=== PATIENT | male | born 1940 | race Caucasian/White ===

== ENCOUNTER 2016-08-19 16:40 | Inpatient (IN) | payer OTHER ==
[2016-08-19 16:55] LABS: ADD DIFF? YES; ADD MORPH? NO; ATYPICAL LYMPHOCYTE FLAG 0 (0-99); FRAGMENT RBC FLAG 0 (0-99); LEFT SHIFT FLG 40 (0-99); LIPEMIA HEMOLYSIS FLAG 80 (0-99); MEAN CELL VOLUME 91.9 fL (81.5-99.8); NRBC-AUTO% 0.1 % (0.0-0.2); PLATELET CLUMPS FLAG 0 (0-99); PLATELET COUNT 249 10^3/uL (150-400); RED CELL DISTRIBUTION WIDTH 13.2 % (11.5-15.2)
[2016-08-19 17:06] LABS: ABSOLUTE NRBC COUNT 0.04 10^3/uL (0-0.01); HEMATOCRIT 41.1 % (40.0-51.0); HEMOGLOBIN 13.7 g/dL (13.7-17.5); MEAN CELL HEMOGLOBIN 30.6 pg (27.9-34.1); MEAN CELL HEMOGLOBIN CONCENTR. 33.3 g/dL (32.4-36.7); MEAN PLATELET VOLUME 10.2 fL (8.7-11.7); RED BLOOD CELL COUNT 4.47 10^6/uL (4.40-6.38)
[2016-08-19 17:07] LABS: ANION GAP 14 mEq/L (8-16); CALCIUM 8.6 mg/dL (8.5-10.4); CARBON DIOXIDE 17 mEq/l (22-31); CHLORIDE 104 mEq/L (97-110); CREATININE 1.6 mg/dL (0.7-1.3); ETHANOL SERUM < 10 mg/dL (0-10); GLOMERULAR FILTRATION RATE 46; GLUCOSE 273 mg/dL (70-100); POTASSIUM 3.3 mEq/L (3.5-5.2); SODIUM 135 mEq/L (134-144)
[2016-08-19 17:08] LABS: % IMMATURE GRANULYOCYTES 3.9 % (0.0-1.1); ABSOLUTE IMMATURE GRANULOCYTES 1.19 10^3/uL (0.00-0.10); ADD SCAN? NO
[2016-08-19 17:10] LABS: INR 1.29 (0.83-1.16); PROTIME(PATIENT) 16.1 SEC (12.0-15.0)
[2016-08-19 17:11] LABS: APTT 34.6 SEC (23.0-38.0)
[2016-08-19] MEDS ORDERED: TRANEXAMIC ACID 1,000 MG/10 ML VIAL ONE (17:18)
[2016-08-19] MEDS ORDERED: NS 100 ML BAG IV ONE ×2 (17:18→17:21)
[2016-08-19] MEDS ORDERED: TRANEXAMIC ACID 1,000 MG in NS 500 ML IV ONE (17:19)
[2016-08-19] MEDS ORDERED: TRANEXAMIC ACID 1,000 MG in NS 100 ML IV ONE (17:19)
[2016-08-19] MEDS ORDERED: CEFAZOLIN 2 GM/DEXTROSE/100 ML BAG IV ONE (17:20)
[2016-08-19 17:29] LABS: BASE EXCESS -21.2 mEq/L (-2.5-2.5); BICARBONATE 9 mEq/L (22-26); MEASURED OXYGEN SATURATION 98 % (92-95); PCO2 43 mmHg (34-38); PO2 167 mmHg (65-75); TCO2 10 mEq/L (23-27)
[2016-08-19 17:30] LABS: ASSIST CONTROL YES; O2 CONCENTRATIION 100 % (0-100); P/F RATIO 167 RATIO
[2016-08-19 17:31] LABS: END TIDAL CO2 28; TOTAL RATE 16
[2016-08-19 17:51] LABS: PLATELET ESTIMATE ADEQUATE (ADEQ)
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
[2016-08-19 18:15] LABS: ADD DIFF? YES; ADD MORPH? NO; FRAGMENT RBC FLAG 0 (0-99); LIPEMIA HEMOLYSIS FLAG 80 (0-99); NRBC-AUTO% 0.3 % (0.0-0.2); PLATELET CLUMPS FLAG 10 (0-99); PLATELET COUNT 129 10^3/uL (150-400); RED BLOOD CELL COUNT 2.88 10^6/uL (4.40-6.38)
[2016-08-19 18:20] LABS: ABSOLUTE NRBC COUNT 0.04 10^3/uL (0-0.01); ATYPICAL LYMPHOCYTE FLAG 10 (0-99); HEMATOCRIT 26.5 % (40.0-51.0); HEMOGLOBIN 8.6 g/dL (13.7-17.5); MEAN CELL HEMOGLOBIN 29.9 pg (27.9-34.1); MEAN CELL HEMOGLOBIN CONCENTR. 32.5 g/dL (32.4-36.7); MEAN PLATELET VOLUME 10.1 fL (8.7-11.7); RED CELL DISTRIBUTION WIDTH 15.4 % (11.5-15.2)
[2016-08-19 18:30] LABS: INR 2.47 (0.83-1.16)
--- NOTE | 2016-08-19 18:31 | CPEKG ---
Heart Rate: 116 RR Interval: 517 QRSD Interval: 124 QT Interval: 364 QTC Interval: 506 QRS [place]: -96 T Wave [place]: 72 EKG Severity - ABNORMAL ECG - EKG Impression: ATRIAL FLUTTER, A-RATE 278 EKG Impression: RIGHT BUNDLE BRANCH BLOCK Electronically Signed By: Jadyn Mason 19-Aug-2016 21:29:03
[2016-08-19] MEDS ORDERED: HEPARIN 10,000 UNIT/10 ML MDV ONE (18:38)
[2016-08-19 18:46] LABS: % IMMATURE GRANULYOCYTES 7.9 % (0.0-1.1)
[2016-08-19 18:47] LABS: ABSOLUTE IMMATURE GRANULOCYTES 1.25 10^3/uL (0.00-0.10); ADD SCAN? NO; LEFT SHIFT FLG 120 (0-99)
[2016-08-19 18:49] LABS: APTT 156.7 SEC (23.0-38.0)
[2016-08-19 18:53] LABS: BASE EXCESS -15.5 mEq/L (-2.5-2.5); BICARBONATE 11 mEq/L (22-26); MEASURED OXYGEN SATURATION 99 % (92-95); PCO2 32 mmHg (34-38); PO2 130 mmHg (65-75); TCO2 12 mEq/L (23-27)
[2016-08-19] MEDS ORDERED: NA BICARBONATE 50 MEQ/50 ML VIAL ONE ×2 (19:01→22:05)
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
[2016-08-19 19:09] LABS: ABSOLUTE NRBC COUNT 0.04 10^3/uL (0-0.01); ADD DIFF? YES; ADD MORPH? NO; ATYPICAL LYMPHOCYTE FLAG 10 (0-99); FRAGMENT RBC FLAG 0 (0-99); HEMATOCRIT 25.2 % (40.0-51.0); LIPEMIA HEMOLYSIS FLAG 80 (0-99); MEAN CELL HEMOGLOBIN 28.8 pg (27.9-34.1); MEAN CELL HEMOGLOBIN CONCENTR. 31.7 g/dL (32.4-36.7); MEAN CELL VOLUME 90.6 fL (81.5-99.8); MEAN PLATELET VOLUME 9.6 fL (8.7-11.7); NRBC-AUTO% 0.3 % (0.0-0.2); PLATELET CLUMPS FLAG 0 (0-99); PLATELET COUNT 141 10^3/uL (150-400); RED BLOOD CELL COUNT 2.78 10^6/uL (4.40-6.38); RED CELL DISTRIBUTION WIDTH 15.4 % (11.5-15.2)
[2016-08-19] MEDS ORDERED: NOREPINEPHRINE/NS 4 MG/500 ML BAG IV ONE ×2 (19:14→21:54)
[2016-08-19 19:15] LABS: LEFT SHIFT FLG 120 (0-99)
[2016-08-19] MEDS: NOREPINEPHRINE/NS 500 ML IV SCH ×2 (19:15→22:00)
[2016-08-19 19:16] LABS: ADD SCAN? NO
[2016-08-19 19:18] LABS: INR 2.83 (0.83-1.16); PROTIME(PATIENT) 30.1 SEC (12.0-15.0)
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
[2016-08-19 20:01] LABS: ECHINOCYTES 2+; MICROCYTES 1+; PLATELET ESTIMATE DECREASED (ADEQ)
--- NOTE | 2016-08-19 20:05 | ECHO ---
[id number] + + [address] : : [facility] [address] : : [phone] + + Adult Echocardiographic Report + + :Name: MADHU AL 1859Study Date: 08/19/2016 06:47 PM : : Hospital Admission Number: [id number] Lo cation: ED 2: :: 1940 Gender: Male : :Age: 75 yrs Race: WH : :Reason For Study: Full Trauma : :History: No previous : + + Left Ventricle The left ventricle is hyperdynamic. Regional wall motion abnormalities cannot be excluded due to limited visualization. Pericardium/Pleural There is no pericardial effusion. Conclusion This is a very limited study. Poor acoustical windows due to trauma. The study was technically difficult. The left ventricle is hyperdynamic. Regional wall motion abnormalities cannot be excluded due to limited visualization. There is no pericardial effusion. Final Reading Physician: Parish Salvador signed on 08/19/2016 08:04 PM Ordering Physician: YORDY KEARNS Performed By: Bernarda Valiente
[2016-08-19] MEDS ORDERED: fentaNYL 100 MCG/2 ML INJ ONE (20:07)
[2016-08-19 20:22] LABS: ECHINOCYTES 2+; MICROCYTES 2+; PLATELET ESTIMATE ADEQUATE (ADEQ)
[2016-08-19] MEDS ORDERED: FUROSEMIDE 20 MG/2 ML VIAL IVP ONE (20:30)
[2016-08-19] MEDS ORDERED: PHYTONADIONE 5 MG in NS 50 ML IV ONE (20:30)
[2016-08-19] MEDS: PHENYLEPHRINE HCL 50 MG in NS 250 ML IV SCH (20:30)
--- NOTE | 2016-08-19 20:30 | POSTOPPROG ---
Post Op Note Date of Operation: 08/19/16 Surgeon: Scotty Villalpando Anesthesia: Local (Specify) Pre-op Diagnosis: Multitrauma, hypotension Post-op Diagnosis: Same Indication: Active pelvic hemorrhage, hypotension Procedure: Catheter arteriography and embolization, left hemipelvis Findings: Successful Embolization of bleeding left obturator artery. Inf/Abcess present in the surg proc area at time of surgery?: No EBL: 50-100 Complications: 0
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
[2016-08-19 20:51] LABS: TEG CONTAINER Citrated Kaolin
[2016-08-19 20:53] LABS: R TIME 7.2 minutes (5-10)
[2016-08-19 20:54] LABS: ALPHA ANGLE 46.7 degrees (53-72); K TIME 3.9 minutes (1-3)
[2016-08-19] MEDS ORDERED: DOPamine/DEXTROSE/250 ML BAG IV ONE (21:07)
[2016-08-19] MEDS ORDERED: SODIUM BICARBONATE 50 MEQ/50 ML SYR ONE (21:07)
[2016-08-19 21:15] LABS: MAXIMUM AMPLITUDE 48.7 mm (50-70)
[2016-08-19] MEDS ORDERED: IOPAMIDOL (ISOVUE-300) 100 ML BTL ONE (21:15)
[2016-08-19 22:01] LABS: BASE EXCESS -20.9 mEq/L (-2.5-2.5); BICARBONATE 9 mEq/L (22-26); IONIZED CALCIUM 0.79 MMOL/L (1.12-1.30); MEASURED OXYGEN SATURATION 93 % (92-95); PCO2 36 mmHg (34-38); PO2 84 mmHg (65-75); TCO2 10 mEq/L (23-27)
[2016-08-19 22:02] LABS: O2 CONCENTRATIION 100 % (0-100); P/F RATIO 84 RATIO
[2016-08-19] MEDS ORDERED: CALCIUM CHLORIDE 1 GM/10 ML INJ IVP ONE (22:45)
[2016-08-19] MEDS ORDERED: SODIUM BICARBONATE 50 MEQ/50 ML SYR IVP ONE ×2 (22:45→23:45)
[2016-08-19] MEDS: VASOPRESSIN/DEXTROSE 250 ML IV SCH (23:30)
[2016-08-20] MEDS ORDERED: ALBUMIN 5% 250 ML BOTTLE IV ONE ×2 (00:04→14:28)
[2016-08-20] MEDS ORDERED: SODIUM BICARBONATE 50 MEQ/50 ML SYR IVP ONE ×3 (00:15→04:00)
[2016-08-20 00:57] LABS: ABSOLUTE NRBC COUNT 0.07 10^3/uL (0-0.01); ADD DIFF? YES; ADD MORPH? NO; ATYPICAL LYMPHOCYTE FLAG 0 (0-99); BICARBONATE 11 mEq/L (22-26); FRAGMENT RBC FLAG 0 (0-99); HEMATOCRIT 31.1 % (40.0-51.0); HEMOGLOBIN 10.1 g/dL (13.7-17.5); LIPEMIA HEMOLYSIS FLAG 80 (0-99); MEAN CELL HEMOGLOBIN 30.4 pg (27.9-34.1); MEAN CELL HEMOGLOBIN CONCENTR. 32.5 g/dL (32.4-36.7); MEAN CELL VOLUME 93.7 fL (81.5-99.8); MEAN PLATELET VOLUME 9.8 fL (8.7-11.7); NRBC-AUTO% 0.8 % (0.0-0.2); PCO2 59 mmHg (34-38); PLATELET CLUMPS FLAG 0 (0-99); PLATELET COUNT 78 10^3/uL (150-400); RED BLOOD CELL COUNT 3.32 10^6/uL (4.40-6.38); RED CELL DISTRIBUTION WIDTH 15.5 % (11.5-15.2); TCO2 13 mEq/L (23-27)
[2016-08-20] MEDS ORDERED: NOREPINEPHRINE/NS 4 MG/500 ML BAG IV ONE ×2 (00:59→05:01)
[2016-08-20] MEDS ORDERED: DOPamine/DEXTROSE/250 ML BAG IV ONE (01:02)
[2016-08-20 01:07] LABS: BASE EXCESS -21.7 mEq/L (-2.5-2.5); MEASURED OXYGEN SATURATION 80 % (92-95); PO2 57 mmHg (65-75)
[2016-08-20 01:10] LABS: INR 4.62 (0.83-1.16); PROTIME(PATIENT) 44.6 SEC (12.0-15.0)
[2016-08-20 01:12] LABS: ADD SCAN? NO; LEFT SHIFT FLG 300 (0-99)
[2016-08-20] MEDS ORDERED: NALOXONE HCL 0.4 MG/ML INJ IVP PRN (01:24)
[2016-08-20] MEDS: NOREPINEPHRINE/NS 500 ML IV SCH (01:30)
[2016-08-20] MEDS ORDERED: HUMAN PROTHROMBIN COMPLX IV ONE (01:30)
[2016-08-20] MEDS ORDERED: ALBUMIN 5% 500 ML BOTTLE IV ONE (01:48)
[2016-08-20 01:53] LABS: ANION GAP 20 mEq/L (8-16); CALCIUM 6.4 mg/dL (8.5-10.4); CARBON DIOXIDE 13 mEq/l (22-31); CHLORIDE 108 mEq/L (97-110); CREATININE 1.5 mg/dL (0.7-1.3); GLOMERULAR FILTRATION RATE 45; GLUCOSE 402 mg/dL (70-100); POTASSIUM 3.1 mEq/L (3.5-5.2); SODIUM 141 mEq/L (134-144)
[2016-08-20 02:20] LABS: BASE EXCESS -17.5 mEq/L (-2.5-2.5); BICARBONATE 11 mEq/L (22-26); MEASURED OXYGEN SATURATION 94 % (92-95); PCO2 35 mmHg (34-38); PO2 63 mmHg (65-75); TCO2 13 mEq/L (23-27)
[2016-08-20 02:24] LABS: ASSIST CONTROL YES; O2 CONCENTRATIION 100 % (0-100); P/F RATIO 63 RATIO; TOTAL RATE 20
[2016-08-20 02:26] LABS: APTT 240.2 SEC (23.0-38.0); HYPOCHROMIA 1+; MICROCYTES 1+; PLATELET ESTIMATE DECREASED (ADEQ)
[2016-08-20 02:28] LABS: ECHINOCYTES 1+
[2016-08-20] MEDS ORDERED: EPINEPHrine 2 MG in D5W 500 ML IV SCH (03:00)
[2016-08-20] MEDS ORDERED: PROTOCOL MAGNESIUM 1 DOSE IV PRN (03:08)
[2016-08-20] MEDS ORDERED: PROTOCOL POTASSIUM 1 DOSE MISC PRN (03:08)
[2016-08-20 03:10] LABS: ABSOLUTE NRBC COUNT 0.06 10^3/uL (0-0.01); ADD DIFF? YES; ATYPICAL LYMPHOCYTE FLAG 0 (0-99); FRAGMENT RBC FLAG 0 (0-99); HEMATOCRIT 26.5 % (40.0-51.0); HEMOGLOBIN 8.7 g/dL (13.7-17.5); IONIZED CALCIUM 0.88 MMOL/L (1.12-1.30); LIPEMIA HEMOLYSIS FLAG 80 (0-99); MEAN CELL HEMOGLOBIN 29.9 pg (27.9-34.1); MEAN CELL HEMOGLOBIN CONCENTR. 32.8 g/dL (32.4-36.7); MEAN CELL VOLUME 91.1 fL (81.5-99.8); MEAN PLATELET VOLUME 9.3 fL (8.7-11.7); PLATELET CLUMPS FLAG 0 (0-99); PLATELET COUNT 99 10^3/uL (150-400); RED BLOOD CELL COUNT 2.91 10^6/uL (4.40-6.38); RED CELL DISTRIBUTION WIDTH 15.1 % (11.5-15.2)
[2016-08-20 03:14] LABS: ADD MORPH? NO; ADD SCAN? NO; LEFT SHIFT FLG 240 (0-99); NRBC-AUTO% 1.1 % (0.0-0.2)
[2016-08-20 03:21] LABS: INR 3.74 (0.83-1.16); PROTIME(PATIENT) 37.6 SEC (12.0-15.0)
[2016-08-20] MEDS ORDERED: D5W 1,000 ML IV SCH (03:27)
[2016-08-20] MEDS ORDERED: INSULIN REGULAR HUMAN 100 UNIT in NS 100 ML IV SCH ×2 (03:27→03:30)
[2016-08-20] MEDS ORDERED: D50W 25 GM/50 ML SYR IVP PRN (03:27)
[2016-08-20] MEDS ORDERED: ALBUMIN 5% 500 ML IV ONE (03:30)
[2016-08-20] MEDS: SODIUM BICARBONATE 150 MEQ in NS 1,000 ML IV SCH ×2 (03:30→12:14)
[2016-08-20 03:42] LABS: COLOR YELLOW; LEUKOCYTE ESTERASE,URINE NEGATIVE (NEGATIVE); NITRITE,URINE NEGATIVE (NEGATIVE)
[2016-08-20 03:46] LABS: BASE EXCESS -18.1 mEq/L (-2.5-2.5); BICARBONATE 11 mEq/L (22-26); MEASURED OXYGEN SATURATION 95 % (92-95); PCO2 30 mmHg (34-38); PO2 66 mmHg (65-75); TCO2 12 mEq/L (23-27)
[2016-08-20 03:48] LABS: END TIDAL CO2 20
[2016-08-20 03:49] LABS: ASSIST CONTROL YES
[2016-08-20 03:50] LABS: O2 CONCENTRATIION 100 % (0-100); P/F RATIO 66 RATIO; TOTAL RATE 24
[2016-08-20] MEDS ORDERED: HYDROmorphONE/DILAUDID 1 MG/ML SYR IVP PRN (03:52)
[2016-08-20] MEDS ORDERED: NA BICARBONATE 50 MEQ/50 ML VIAL ONE (03:58)
[2016-08-20] MEDS: NOREPINEPHRINE BITARTRATE 16 MG in NS 250 ML IV SCH ×2 (04:00→11:12)
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
[2016-08-20 04:18] LABS: MUCUS TRACE /lpf (NONE-1+); RBC,URINE 50-182 /hpf (0-3)
[2016-08-20] MEDS: PHENYLEPHRINE HCL 50 MG in NS 250 ML IV SCH ×4 (04:30→17:28)
[2016-08-20] MEDS: POTASSIUM Cl (KCl) 50 ML IV SCH ×7 (04:30→14:05)
[2016-08-20 04:31] LABS: ECHINOCYTES 1+; MICROCYTES 1+; PLATELET ESTIMATE DECREASED (ADEQ); POLYCHROMASIA 1+
[2016-08-20 04:42] LABS: BASE EXCESS -15.9 mEq/L (-2.5-2.5); BICARBONATE 13 mEq/L (22-26); MEASURED OXYGEN SATURATION 91 % (92-95); PCO2 40 mmHg (34-38); PO2 68 mmHg (65-75); TCO2 14 mEq/L (23-27)
[2016-08-20 04:44] LABS: ASSIST CONTROL YES; TOTAL RATE 24
[2016-08-20 04:44] LABS: ANION GAP 19 mEq/L (8-16); CALCIUM 6.4 mg/dL (8.5-10.4); CARBON DIOXIDE 12 mEq/l (22-31); CHLORIDE 107 mEq/L (97-110); CREATININE 1.6 mg/dL (0.7-1.3); GLOMERULAR FILTRATION RATE 42; GLUCOSE 406 mg/dL (70-100); MAGNESIUM 1.7 mg/dL (1.6-2.3); POTASSIUM 2.8 mEq/L (3.5-5.2); SODIUM 138 mEq/L (134-144)
[2016-08-20] MEDS ORDERED: MAGNESIUM SULF 1 GM/DEXTROSE 100 ML IV ONE (04:51)
[2016-08-20] MEDS ORDERED: POTASSIUM Cl (KCl) 20 MEQ/50 ML BAG IV ONE (05:06)
[2016-08-20] MEDS ORDERED: MAGNESIUM SULF 1 GM/DEXTROSE 100 ML BAG IV ONE (05:07)
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
[2016-08-20] MEDS ORDERED: CEFAZOLIN 1 GM/DEXTROSE/50 ML BAG IV ONE (05:29)
[2016-08-20] MEDS ORDERED: FUROSEMIDE 20 MG/2 ML VIAL IVP ONE (05:30)
[2016-08-20 05:48] LABS: HEMATOCRIT 29.1 % (40.0-51.0); HEMOGLOBIN 9.9 g/dL (13.7-17.5)
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
[2016-08-20] MEDS ORDERED: D10W 250 ML PRN HYPOGLYCEMIA IV (08:00)
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
[2016-08-20 08:10] VITALS: RESP 26; O2SAT 100
[2016-08-20 08:13] LABS: POTASSIUM 3.6 mEq/L (3.5-5.2)
[2016-08-20 08:16] LABS: BASE EXCESS -17.8 mEq/L (-2.5-2.5); BICARBONATE 10 mEq/L (22-26); IONIZED CALCIUM 0.97 MMOL/L (1.12-1.30); MEASURED OXYGEN SATURATION 99 % (92-95); PCO2 32 mmHg (34-38); PO2 186 mmHg (65-75); TCO2 11 mEq/L (23-27)
[2016-08-20] MEDS ORDERED: PROTOCOL K PHOSPHATE 1 DOSE IV PRN (08:22)
[2016-08-20] MEDS ORDERED: PROTOCOL CALCIUM 1 DOSE IV PRN (08:22)
[2016-08-20] MEDS ORDERED: CALCIUM GLUCONATE 50 ML IV ONE (08:23)
[2016-08-20 08:24] LABS: INR 3.44 (0.83-1.16); PROTIME(PATIENT) 35.2 SEC (12.0-15.0)
[2016-08-20 08:25] LABS: APTT 89.1 SEC (23.0-38.0)
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
[2016-08-20 08:49] LABS: ABSOLUTE IMMATURE GRANULOCYTES 0.13 10^3/uL (0.00-0.10); ABSOLUTE NRBC COUNT 0.04 10^3/uL (0-0.01); ADD DIFF? NO; ADD MORPH? NO; ADD SCAN? YES; ATYPICAL LYMPHOCYTE FLAG 0 (0-99); FRAGMENT RBC FLAG 0 (0-99); HEMATOCRIT 27.6 % (40.0-51.0); HEMOGLOBIN 9.5 g/dL (13.7-17.5); LIPEMIA HEMOLYSIS FLAG 90 (0-99); MEAN CELL HEMOGLOBIN 30.2 pg (27.9-34.1); MEAN CELL HEMOGLOBIN CONCENTR. 34.4 g/dL (32.4-36.7); MEAN CELL VOLUME 87.6 fL (81.5-99.8); MEAN PLATELET VOLUME 9.7 fL (8.7-11.7); NRBC-AUTO% 0.6 % (0.0-0.2); PLATELET CLUMPS FLAG 30 (0-99); PLATELET COUNT 91 10^3/uL (150-400); RED BLOOD CELL COUNT 3.15 10^6/uL (4.40-6.38); RED CELL DISTRIBUTION WIDTH 15.5 % (11.5-15.2)
[2016-08-20 09:11] LABS: LEFT SHIFT FLG 300 (0-99)
[2016-08-20 09:20] LABS: ALANINE AMINOTRANSFERASE 381 IU/L (21-72); ALBUMIN 1.8 g/dL (3.5-5.0); ALKALINE PHOSPHATASE 36 IU/L (38-126); ANION GAP 24 mEq/L (8-16); ASPARTATE AMINOTRANSFERASE 490 IU/L (17-59); BILIRUBIN,TOTAL 1.4 mg/dL (0.1-1.4); CALCIUM 6.2 mg/dL (8.5-10.4); CARBON DIOXIDE 13 mEq/l (22-31); CHLORIDE 108 mEq/L (97-110); CREATININE 1.9 mg/dL (0.7-1.3); GLOMERULAR FILTRATION RATE 35; GLUCOSE 332 mg/dL (70-100); POTASSIUM 3.7 mEq/L (3.5-5.2); SODIUM 145 mEq/L (134-144)
[2016-08-20] MEDS: HYDROCORTISONE 100 MG/2 ML VIAL IVP SCH ×2 (09:32→13:34)
[2016-08-20 10:02] LABS: SCAN NEGATIVE
[2016-08-20] MEDS: VASOPRESSIN/DEXTROSE 250 ML IV SCH (10:30)
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
[2016-08-20] MEDS ORDERED: CODE BLUE RESUSCITATION 1 EA MISC ONE (10:39)
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
[2016-08-20 11:22] LABS: BASE EXCESS -16.6 mEq/L (-2.5-2.5); BICARBONATE 11 mEq/L (22-26); MEASURED OXYGEN SATURATION 99 % (92-95); PCO2 30 mmHg (34-38); PO2 280 mmHg (65-75); TCO2 12 mEq/L (23-27)
[2016-08-20 11:24] LABS: HEMATOCRIT 20.3 % (40.0-51.0)
[2016-08-20 11:26] LABS: ASSIST CONTROL YES
[2016-08-20 11:27] LABS: O2 CONCENTRATIION 100 % (0-100); P/F RATIO 280 RATIO; PATIENT RATE 12; TOTAL RATE 26
[2016-08-20 11:38] LABS: HEMOGLOBIN 6.9 g/dL (13.7-17.5); INR 2.2 (0.83-1.16); PROTIME(PATIENT) 24.6 SEC (12.0-15.0)
[2016-08-20] MEDS ORDERED: SODIUM BICARBONATE IV SCH (12:00)
[2016-08-20] MEDS ORDERED: 1/2 NS IV SCH (12:00)
[2016-08-20 12:08] LABS: POTASSIUM 3.3 mEq/L (3.5-5.2)
[2016-08-20] MEDS ORDERED: SODIUM BICARBONATE 150 MEQ in WATER FOR INJECTION,STERILE 1,000 ML IV SCH (12:30)
--- NOTE | 2016-08-20 12:36 | GOP ---
[f rep st] OPERATIVE REPORT DATE OF OPERATION: 08/19/2016 SURGEON: Scotty Garcia MD PREOPERATIVE DIAGNOSIS: Left hemothorax. POSTOPERATIVE DIAGNOSIS: Left hemothorax. PROCEDURE PERFORMED: Left tube thoracostomy. FINDINGS: DESCRIPTION OF PROCEDURE: The patient was unconscious in the emergency room and intubated. He was prepped and draped in the usual sterile fashion. Short incision was made in the anterior axillary l ine in the 6th intercostal space. Using blunt dissection, the intercostal muscles were pierced, rel easing some old blood. A #28 chest tube was passed without difficulty into the left hemothorax, was secured at the exit site with an 0 silk suture. It was connected to the Pleur-Evac drainage system , and emptied approximately 600 cc of old blood. Chest x-ray reveals good full expansion of the bindu g with no residual fluid. He tolerated the procedure quite well. The wounds were dressed. /[id number]/MODL
--- NOTE | 2016-08-20 12:51 | GOP ---
[f rep st] OPERATIVE REPORT DATE OF OPERATION: SURGEON: Scotty Garcia MD PREOPERATIVE DIAGNOSIS: Right brow laceration. POSTOPERATIVE DIAGNOSIS: Right brow laceration. PROCEDURE PERFORMED: Debridement and repair of the stellate right brow laceration. FINDINGS: Patient was found to have a 4 cm stellate laceration at the right supraorbital rim. DESCRIPTION OF PROCEDURE: The area was prepped in Betadine. The wound was scrubbed. The cut edges of the laceration were trimmed back sharply to good clean viable tissue and wound was repaired in l mishra using a 4-0 Vicryl for the subcutaneous tissue and a running 5-0 Prolene suture for the skin. He tolerated the procedure well. There were no complications. This was done with no anesthesia and 0.5% Marcaine local. /[id number]/MODL
[2016-08-20 12:57] LABS: HEMATOCRIT 19.9 % (40.0-51.0)
[2016-08-20 13:00] LABS: HEMOGLOBIN 6.8 g/dL (13.7-17.5)
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
--- NOTE | 2016-08-20 13:40 | SOAPPROG ---
SOAP Progress Note Assessment/Plan: Assessment: Plan: Subjective: left thigh swollen- compartmnet pressures measured at 3 lites laterally- [id number] medially 23 at one site. discussed fasciotomy with miryam- will proceed despite not fully corrected coagulopathy, decresing red cell mass, acidosis. Objective: Vital Signs Temp Pulse Resp BP Pulse Ox 36.8 C 97 26 H 125/59 H 100 08/20/16 13:00 08/20/16 13:00 08/20/16 13:00 08/20/16 13:00 08/20/16 13:00 Laboratory Results 08/20/16 12:40 08/20/16 11:15 08/19/16 08/20/16 08/21/16 05:59 05:59 05:59 Intake Total 81792.1 Output Total 4050 360 Balance 86428.1 -360 PT 24.6 SEC (12.0-15.0) H D 08/20/16 11:15 INR 2.20 (0.83-1.16) H 08/20/16 11:15 ICD10 Worksheet Patient Problems: Problems Problem Status Onset Femur fracture, left Acute Pelvis fracture Acute Tibia/fibula fracture Acute
[2016-08-20] MEDS ORDERED: HYDROCORTISONE 100 MG/2 ML VIAL IVP SCH (14:00)
[2016-08-20 14:11] LABS: BASE EXCESS -16.1 mEq/L (-2.5-2.5); BICARBONATE 11 mEq/L (22-26); MEASURED OXYGEN SATURATION 99 % (92-95); PCO2 32 mmHg (34-38); PO2 221 mmHg (65-75); TCO2 12 mEq/L (23-27)
[2016-08-20] MEDS ORDERED: fentaNYL 100 MCG/2 ML INJ ONE (14:59)
[2016-08-20 15:14] LABS: HEMATOCRIT 27.4 % (40.0-51.0); HEMOGLOBIN 9.4 g/dL (13.7-17.5)
[2016-08-20] MEDS ORDERED: fentaNYL 100 MCG/2 ML INJ IVP ONE (15:15)
[2016-08-20] MEDS ORDERED: fentaNYL/NACL 100 ML IV SCH (16:16)
[2016-08-20] MEDS ORDERED: fentaNYL 100 MCG/2 ML INJ IVP PRN (16:16)
[2016-08-20 18:29] LABS: POTASSIUM 4.7 mEq/L (3.5-5.2)
[2016-08-20 20:25] VITALS: BP 131/69; PULSE 93; TEMP 100
[2016-08-20] MEDS ORDERED: FAMOTIDINE 20 MG/NACL 50 ML IV SCH (21:00)
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
[2016-08-21 02:20] LABS: HEMOGLOBIN A1C 5.7 % (4.0-6.0)
== END 2016-08-20 23:30 | disposition expired | DRG 957 ==
LOC: EDBD 16:40 → F2N 19:40
PROVIDERS: ADMIT Surgery; ATTEND Surgery
PROC: B41C1ZZ Fluoroscopy of Pelvic Arteries using Low Osmolar Contrast (ICD-10-PCS; 2016-08-19)
PROC: 2W3 Placement, Anatomical Regions, Immobilization (ICD-10-PCS; 2016-08-19)
PROC: 2W3LX1Z Immobilization of Right Lower Extremity using Splint (ICD-10-PCS; 2016-08-19)
PROC: 2W3MX1Z Immobilization of Left Lower Extremity using Splint (ICD-10-PCS; 2016-08-19)
PROC: 02HV33Z Insertion of Infusion Device into Superior Vena Cava, Percutaneous Approach (ICD-10-PCS; 2016-08-19)
PROC: 0HQ1XZZ Repair Face Skin, External Approach (ICD-10-PCS; principal; 2016-08-19 23:40)
PROC: 0W9G0ZZ Drainage of Peritoneal Cavity, Open Approach (ICD-10-PCS; principal; 2016-08-19 23:40)
PROC: 0DQV0ZZ Repair Mesentery, Open Approach (ICD-10-PCS; principal; 2016-08-19 23:40)
PROC: 2W13X6Z Compression of Abdominal Wall using Pressure Dressing (ICD-10-PCS; principal; 2016-08-19 23:40)
PROC: 0W9B30Z Drainage of Left Pleural Cavity with Drainage Device, Percutaneous Approach (ICD-10-PCS; 2016-08-19 23:40)
PROC: 30233K1 Transfusion of Nonautologous Frozen Plasma into Peripheral Vein, Percutaneous Approach (ICD-10-PCS; 2016-08-19 23:40)
PROC: 30233M1 Transfusion of Nonautologous Plasma Cryoprecipitate into Peripheral Vein, Percutaneous Approach (ICD-10-PCS; 2016-08-19 23:40)
PROC: 30233R1 Transfusion of Nonautologous Platelets into Peripheral Vein, Percutaneous Approach (ICD-10-PCS; 2016-08-19 23:40)
PROC: 30233N1 Transfusion of Nonautologous Red Blood Cells into Peripheral Vein, Percutaneous Approach (ICD-10-PCS; 2016-08-19 23:40)
PROC: 30283B1 Transfusion of Nonautologous 4-Factor Prothrombin Complex Concentrate into Vein, Percutaneous Approach (ICD-10-PCS; 2016-08-19 23:40)
PROC: 04LE3ZZ Occlusion of Right Internal Iliac Artery, Percutaneous Approach (ICD-10-PCS; 2016-08-19 23:40)
DX: S32.811A Multiple fractures of pelvis with unstable disruption of pelvic ring, initial encounter for closed fracture (principal); T79.4XXA Traumatic shock, initial encounter; J96.01 Acute respiratory failure with hypoxia; K66.1 Hemoperitoneum; S82.251B Displaced comminuted fracture of shaft of right tibia, initial encounter for open fracture type I or II; S82.451B Displaced comminuted fracture of shaft of right fibula, initial encounter for open fracture type I or II; S72.352B Displaced comminuted fracture of shaft of left femur, initial encounter for open fracture type I or II; T79.A22A Traumatic compartment syndrome of left lower extremity, initial encounter; S32.011A Stable burst fracture of first lumbar vertebra, initial encounter for closed fracture; S32.10XA Unspecified fracture of sacrum, initial encounter for closed fracture; S01.111A Laceration without foreign body of right eyelid and periocular area, initial encounter; S21.119A Laceration without foreign body of unspecified front wall of thorax without penetration into thoracic cavity, initial encounter; S22.20XA Unspecified fracture of sternum, initial encounter for closed fracture; S59.902A Unspecified injury of left elbow, initial encounter; S27.322A Contusion of lung, bilateral, initial encounter; J90 Pleural effusion, not elsewhere classified; R40.2431 Glasgow coma scale score 3-8, in the field [EMT or ambulance]; V23.4XXA Motorcycle driver injured in collision with car, pick-up truck or van in traffic accident, initial encounter; Y92.410 Unspecified street and highway as the place of occurrence of the external cause; Z51.5 Encounter for palliative care
CPT/HCPCS: 80305; 82947-QW; 96374; 99001-90; C1751; C1769; C1892; C1894; C9132; G0480; J0171; J0610; J0690; J1265; J1644; J1815; J1940; J2370; J3010; J3430; J3475; L0172; P9012; P9016; P9017; P9021; P9035; P9040; P9041; Q9967